=== PATIENT | female | born 1990 | race Caucasian/White ===

== ENCOUNTER 2018-02-24 22:43 | Emergency (ER) | payer MEDICAID ==
[2018-02-24 23:42] LABS: ABSOLUTE BASOPHILS # (AUTO) 0.1 10^3/uL (0.0-0.2); ABSOLUTE EOSINOPHILS # (AUTO) 0.2 10^3/uL (0.0-0.6); ABSOLUTE MONOCYTES (AUTO) 0.8 10^3/uL (0.1-1.4); ABSOLUTE NEUT (AUTO) 5.4 10^3/uL (1.7-8.2); BASOPHILS % (AUTO) 0.9 % (0-2); EOSINOPHILS % (AUTO) 2.2 % (0-6); HEMATOCRIT 43.1 % (36.0-47.0); HEMOGLOBIN 14.8 g/dL (12.0-15.5); LYMPHOCYTES % (AUTO) 37.6 % (13-45); MEAN CORPUSCULAR HEMOGLOBIN 31.5 pg (27.0-33.4); MEAN CORPUSCULAR HGB CONC 34.2 g/dL (32.0-36.0); MEAN CORPUSCULAR VOLUME 92 fl (80-97); MONOCYTES % (AUTO) 7.6 % (3-13); PLATELET COUNT 303 10^3/uL (150-450); RED BLOOD COUNT 4.68 10^6/uL (3.72-5.28); RED CELL DISTRIBUTION WIDTH 12.9 % (11.5-14.0); SEGMENTED NEUTROPHILS % (AUTO) 51.7 % (42-78); TOTAL CELLS COUNTED % (AUTO) 100 %; WHITE BLOOD COUNT 10.5 10^3/uL (4.0-10.5)
[2018-02-24 23:56] LABS: ALANINE AMINOTRANSFERASE 21 U/L (9-52); ALBUMIN 3.5 g/dL (3.5-5.0); ALKALINE PHOSPHATASE 61 U/L (38-126); ANION GAP 9 (5-19); ASPARTATE AMINO TRANSFERASE 25 U/L (14-36); BILIRUBIN,DIRECT 0.2 mg/dL (0.0-0.4); BILIRUBIN,TOTAL 0.3 mg/dL (0.2-1.3); BLOOD UREA NITROGEN 22 mg/dL (7-20); CALCIUM 8.8 mg/dL (8.4-10.2); CARBON DIOXIDE 28 mmol/L (22-30); CHLORIDE 104 mmol/L (98-107); GLUCOSE 85 mg/dL (75-110); SODIUM 141.1 mmol/L (137-145); TOTAL PROTEIN 5.6 g/dL (6.3-8.2)
[2018-02-24 23:59] LABS: ACETAMINOPHEN < 10 ug/mL (10-30); ALCOHOL < 10 mg/dL (NONE DETECTED); SALICYLATE < 1.0 mg/dL (2.0-20.0)
[2018-02-25] MEDS ORDERED: ACTIVATED CHARCOAL 25 GM BOTTLE PO ONE (00:07)
[2018-02-25] MEDS ORDERED: LORAZEPAM 1 MG TABLET PO ONE (00:08)
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
[2018-02-25] MEDS ORDERED: NICOTINE 21 MG/24 HR PATCH.TD24 TD ONE (00:36)
[2018-02-25 01:53] LABS: AMORPHOUS SEDIMENT,URINE TRACE /HPF; APPEARANCE,URINE CLOUDY; BILIRUBIN,URINE NEGATIVE (NEGATIVE); COLOR,URINE YELLOW; GLUCOSE, URINE NEGATIVE (NEGATIVE); KETONES,URINE NEGATIVE (NEGATIVE); LEUKOCYTE ESTERASE,URINE TRACE (NEGATIVE); NITRITE,URINE NEGATIVE (NEGATIVE); PROTEIN,URINE NEGATIVE (NEGATIVE); URINE SPECIFIC GRAVITY 1.024
[2018-02-25 02:23] LABS: URINE AMPHETAMINES SCREEN NEGATIVE; URINE BARBITURATES SCREEN NEGATIVE; URINE BENZODIAZEPINES SCREEN NEGATIVE; URINE COCAINE SCREEN NEGATIVE; URINE MARIJUANA (THC) SCREEN UNCONFIRMED POSITIVE; URINE METHADONE SCREEN NEGATIVE; URINE PHENCYCLIDINE SCREEN NEGATIVE
[2018-02-25] MEDS ORDERED: NICOTINE 14 MG/24 HR PATCH.TD24 TD ONE (09:30)
--- NOTE | 2018-02-25 09:32 | ER Document Report ---
Doctor's Note Notes: 02/25/18 09:31 This is a 27-year-old female that was brought in agitated and depressed after filling out a suicidal note. The patient had lost her first . If the getting remarried, her infant son approximately a year ago. Now she is currently undergoing a divorce and her relationship with her is poor. She is also had stress from a recent DUI. So the patient appears to be spiraling out of control emotionally. She did require sedation last night. She is alert and oriented 3 this morning. She is ambulating around the room and out to the desk without problems. She is requesting to go home and does appear emotionally labile. Her labs and vital signs have been stable. She denies any dysuria or vaginal discharge. While she does not have a definitive plan for suicide, there is a significant concern for her well-being and she will be held in involuntary commitment. 02/25/18 10:11 02/25/18 15:09 Current medicines includes: BuSpar 5 mg p.o. twice daily Zyprexa 5 mg p.o. twice daily Cogentin 1 mg daily
[2018-02-25] MEDS ORDERED: OLANZAPINE 5 MG TABLET PO PRN (14:26)
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
[2018-02-25] MEDS ORDERED: OLANZAPINE 5 MG TABLET PO SCH (18:00)
[2018-02-25] MEDS ORDERED: BUSPIRONE HCL 10 MG TABLET PO SCH (18:00)
[2018-02-25] MEDS ORDERED: VENLAFAXINE HCL 37.5 MG CAP.SR.24H PO SCH (18:00)
[2018-02-25] MEDS: BUSPIRONE HCL 10 MG TABLET PO SCH (18:59)
[2018-02-25] MEDS: OLANZAPINE 5 MG TABLET PO SCH (19:00)
[2018-02-25] MEDS ORDERED: HYDROXYZINE PAMOATE 50 MG CAPSULE PO PRN (19:46)
[2018-02-25] MEDS ORDERED: ZOLPIDEM TARTRATE 5 MG TABLET PO ONE (20:52)
[2018-02-26] MEDS ORDERED: LORAZEPAM INJ 2 MG/1 ML VIAL IM ONE (04:05)
[2018-02-26] MEDS ORDERED: BUSPIRONE HCL 10 MG TABLET PO SCH (08:00)
[2018-02-26] MEDS: BUSPIRONE HCL 10 MG TABLET PO SCH ×2 (09:45→18:33)
[2018-02-26] MEDS: BENZTROPINE MESYLATE 1 MG TABLET PO SCH (09:45)
[2018-02-26] MEDS: OLANZAPINE 5 MG TABLET PO SCH ×2 (09:46→18:32)
--- NOTE | 2018-02-26 10:42 | ER Document Report ---
Doctor's Note Notes: 02/26/18 10:41 Medical rounds: Chart reviewed and patient interviewed briefly. Vital signs are stable. Laboratory values satisfactory. Patient is alert, oriented, and cooperative. She denies any somatic complaints. She states she feels much better today, mental status-abarca. She appears to be medically stable. She states someone from the psychosocial team has spoken with her today and has told her she is going to be released. Formal report and recommendations from psych are still pending.
[2018-02-26] MEDS ORDERED: NICOTINE 21 MG/24 HR PATCH.TD24 TD ONE (12:56)
[2018-02-26] MEDS ORDERED: TRAZODONE HCL 50 MG TABLET PO ONE (21:38)
[2018-02-27] MEDS ORDERED: ZOLPIDEM TARTRATE 5 MG TABLET PO ONE (00:06)
[2018-02-27] MEDS: BENZTROPINE MESYLATE 1 MG TABLET PO SCH (09:30)
[2018-02-27] MEDS: OLANZAPINE 5 MG TABLET PO SCH (09:30)
[2018-02-27] MEDS: BUSPIRONE HCL 10 MG TABLET PO SCH (09:30)
--- NOTE | 2018-02-27 09:43 | ER Document Report ---
Doctor's Note Notes: 02/27/18 09:43 Patient evaluated and assessed, has no medical complaint. Resting comfortably. Available records and notes are reviewed. Exam shows patient to be resting comfortably, normal respiratory excursion, nonfocal exam, otherwise benign. Disposition pending final psychiatric assessment and evaluation.
[2018-02-27] MEDS ORDERED: NICOTINE 21 MG/24 HR PATCH.TD24 TD ONE (11:54)
[2018-02-27 12:18] VITALS: BP 135/75
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
--- NOTE | 2018-02-27 17:36 | PSYCHOLOGICAL NOTE ---
Psych Note - Psych Note Psych Note: Reason for evaluation: Suicidal ideation Contact Permissions: Abdoulaye Flores [phone] Patient is a 27 year old female. Patient stated " when I get there will they hear my story". Patient stated " I wrote my story down with nanette on these papers" ( showing clinician 3 pages of her story). Patient reported she plans on taking the papers with her to show the therapist at [facility]. Patient reports she feels this was because of her mom not wanting to talk to her mother in law about the "annoying phone calls". Patient reports she is afraid she will get charged with a misdemeanor. Patient reports she just wants to go to [place]. Patient reports she was not giving away all of her belongings, she just planned on letting her grandmother store them because she had no where to put her stuff due to renting her house out to tenants. Patient reports she just did not know how to deal with her mother in law ( which is actually patient's 's grandmother). Patient reports she wanted her and mother in law to be sorry. Patient reports she felt that her mother in law didn't know her life, and did not know what it was like to lose a to suicide, to know what it is to lose your son. Clinician updated patient about placement. Medication recommendations per [facility]'s contracted psychiatrist Dr. Gerry MAE are as follows 1. Discontinue Effexor 37.5mg twice daily 2. BuSpar 5 mg every morning then 10 mg every afternoon 3. Zyprexa 5 mg twice daily for mood stabliization 4. 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 Patient was assessed by clinician's career technical supervisor, whom stated recommendation to continue the IVC due to patient meeting criteria [place] GS 122C. Patient was [facility] by [facility], and [facility] by [facility]. Please refer to career technical supervisor's note regarding evaluation. Attending physician in agreement with plan and disposition. Consulted with Dr. Vargas regarding the management and care of patient.
== END 2018-02-27 12:40 ==
LOC: ER 22:43
DX: R45.851 Suicidal ideations (principal); F17.200 Nicotine dependence, unspecified, uncomplicated; F43.10 Post-traumatic stress disorder, unspecified
CPT/HCPCS: 99285; 96372; 36415; 87086; 80307 ×4; 84703; 85025; 80053; 81001; J3490 ×16; J2060